=== PATIENT | male | born 1950 | race African-American/Black ===

== ENCOUNTER 2021-06-29 14:29 | Inpatient (IN) | payer MEDICARE, OTHER ==
[~2021-06-29] VITALS: Ht 165.1 cm; Wt 84.9 kg
[2021-06-29] MEDS ORDERED: methylPREDNISolone SOD SUCC 125 MG/2 ML VL IV ONE (14:45)
[2021-06-29] MEDS ORDERED: EPINEPHrine HCL 1 MG/1 ML AMP SC ONE (14:45)
[2021-06-29 15:09] LABS: Basophils # (auto) 0.1 10 ^3/uL (0-0.2); Basophils % (auto) 1.7 % (0.0-2.0); Eosinophils # (auto) 0 10 ^3/uL (0-0.8); Hematocrit 46.4 % (41.0-53.0); Hemoglobin 15.5 g/dL (13.5-17.5); Lymphocytes # (auto) 0.4 10 ^3/uL (0.4-5.4); Lymphocytes % (auto) 5.1 % (10.0-50.0); Mean Corpuscular Hgb Conc. 33.5 g/dL (32.0-36.0); Mean Corpuscular Volume 83.4 fL (80.0-100.0); Monocytes # (auto) 0 10 ^3/uL (0-1.3); Monocytes % (auto) 0.5 % (0.0-12.0); Neutrophils # (auto) 7.5 10 ^3/uL (1.6-8.6); Neutrophils % (auto) 92.7 % (37.0-80.0); Red Blood Cells 5.56 10^6/uL (4.5-5.90); Red Cell Distribution Width 14.8 % (11.8-14.3); White Blood Cell 8.1 10^3/uL (4.4-10.8)
[2021-06-29 15:29] LABS: BUN/Creatinine Ratio 15.7; Calcium 10.9 mg/dL (8.5-10.1); Potassium 3.8 mmol/L (3.5-5.1)
[2021-06-29 15:33] LABS: Bilirubin, Total 0.4 mg/dL (0.2-1.0); Total Protein 8.8 g/dL (6.4-8.2)
[2021-06-29] MEDS ORDERED: NITROGLYCERIN 0.4 MG SL TAB SL PRN (17:15)
[2021-06-29] MEDS ORDERED: LACTATED RINGER'S 1,000 ML IV ONE (17:15)
[2021-06-29] MEDS ORDERED: diphenhdrAMINE HCL 50 MG/1 ML VL IV PRN ×2 (17:15→19:45)
[2021-06-29] MEDS ORDERED: MORPHINE SULFATE INJECTION 2 MG/ML SYRG IV PRN ×2 (17:15→19:45)
[2021-06-29] MEDS ORDERED: diphenhdrAMINE HCL 50 MG/1 ML VL IV ONE (17:15)
[2021-06-29] MEDS ORDERED: FAMOTIDINE (10MG/ML) 2ML VL IV ONE (19:45)
[2021-06-29] MEDS ORDERED: ONDANSETRON HCL 4 MG/2 ML VIAL IV PRN (19:45)
[2021-06-29] MEDS ORDERED: IPRATROPIUM BROM 0.5 MG/2.5ML INH SOL NEB ONE (19:45)
[2021-06-29] MEDS ORDERED: HYDROcodone-ACET 5/325MG TAB PO PRN (19:45)
[2021-06-29] MEDS ORDERED: NIFEdipine ER 30 MG TAB PO ONE (19:45)
[2021-06-29] MEDS ORDERED: LORazepam 0.5 MG TAB PO PRN (19:45)
[2021-06-29] MEDS ORDERED: DOCUSATE SOD 100 MG CAP PO PRN (19:45)
[2021-06-29] MEDS ORDERED: LACTULOSE 20Gm/30ML SOLN PO PRN (19:45)
[2021-06-29] MEDS ORDERED: hydrALAZINE HCL 20 MG/ML VL IV PRN (19:45)
[2021-06-29] MEDS ORDERED: ZOLEDRONIC ACID 4 MG in SODIUM CHL 0.9% 100 ML IV ONE (19:45)
[2021-06-29] MEDS ORDERED: HYDROcodone-ACET 5/325MG TAB PO ONE (19:45)
[2021-06-29] MEDS ORDERED: levoFLOXacin 750MG 150 ML IV ONE (19:45)
[2021-06-29] MEDS ORDERED: IOHEXOL 300 MG/ML 100ML BOTTLE IJ ONE (20:44)
[2021-06-29] MEDS: SODIUM CHLORIDE 0.9% 1,000 ML IV SCH (21:17)
[2021-06-29] MEDS: methylPREDNISolone SOD SUCC 40 MG/ML VL IV SCH (21:41)
[2021-06-29] MEDS ORDERED: ATORVASTATIN 20 MG TAB PO SCH (22:00)
[2021-06-29] MEDS ORDERED: ENOXAPARIN SOD 40 MG/0.4 ML SYRINGE SC SCH (22:00)
[2021-06-29] MEDS ORDERED: IPRATROPIUM BROM 0.5 MG/2.5ML INH SOL NEB SCH (22:00)
[2021-06-29 22:22] LABS: INR 1.1 (0.9-1.15)
[2021-06-29 22:30] LABS: Magnesium 1.8 mg/dL (1.6-2.6); Phosphorus 3.1 mg/dL (2.5-4.90)
[2021-06-29 23:41] VITALS: BP 126/66
[2021-06-30] MEDS ORDERED: HYDR25TA4 PO (00:18)
[2021-06-30] MEDS ORDERED: AMLO5CAP PO (00:18)
[2021-06-30 04:48] VITALS: BP 137/62
[2021-06-30 05:34] LABS: Basophils # (auto) 0 10 ^3/uL (0-0.2); Basophils % (auto) 0.2 % (0.0-2.0); Eosinophils # (auto) 0 10 ^3/uL (0-0.8); Hemoglobin 14.2 g/dL (13.5-17.5); Lymphocytes # (auto) 1.3 10 ^3/uL (0.4-5.4); Lymphocytes % (auto) 15.2 % (10.0-50.0); Mean Corpuscular Hemoglobin 28.1 pg (28.0-32.0); Mean Corpuscular Hgb Conc. 33.8 g/dL (32.0-36.0); Mean Corpuscular Volume 83.2 fL (80.0-100.0); Monocytes # (auto) 0.1 10 ^3/uL (0-1.3); Monocytes % (auto) 1.2 % (0.0-12.0); Neutrophils # (auto) 7.2 10 ^3/uL (1.6-8.6); Neutrophils % (auto) 83.4 % (37.0-80.0); Red Blood Cells 5.05 10^6/uL (4.5-5.90); Red Cell Distribution Width 14.7 % (11.8-14.3); White Blood Cell 8.7 10^3/uL (4.4-10.8)
[2021-06-30 05:55] LABS: INR 1.18 (0.9-1.15); Partial Thromboplastin Time 31.6 sec (23.6-33.0)
[2021-06-30 05:57] LABS: Potassium 3.7 mmol/L (3.5-5.1)
[2021-06-30 06:08] LABS: Albumin 3.4 g/dL (3.4-5.0); BUN/Creatinine Ratio 15.7; Bilirubin, Total 0.4 mg/dL (0.2-1.0); CRP High Sensitivity 3.16 mg/dL (< 0.3); Calcium 9.9 mg/dL (8.5-10.1); Magnesium 1.8 mg/dL (1.6-2.6); Phosphorus 3.2 mg/dL (2.5-4.90); Total Protein 8.4 g/dL (6.4-8.2)
[2021-06-30] MEDS: methylPREDNISolone SOD SUCC 40 MG/ML VL IV SCH (06:20)
[2021-06-30 08:51] VITALS: BP 123/55
[2021-06-30] MEDS: SODIUM CHLORIDE 0.9% 1,000 ML IV SCH (09:05)
[2021-06-30 09:11] LABS: Urine Bacteria NONE SEEN /hpf (None Seen); Urine Blood Negative /uL (Negative); Urine Specific Gravity 1.025 (1.001-1.035); Urine WBC <1 /hpf (0 - 3)
[2021-06-30 09:18] LABS: Amphetamine Screen, Urine NEGATIVE (NEGATIVE); Barbiturate Scree,Urine NEGATIVE (NEGATIVE); Benzodiazephine Screen, Urine NEGATIVE (NEGATIVE); Cannabinoid Screen, Urine NEGATIVE (NEGATIVE); Cocaine Screen, Urine NEGATIVE (NEGATIVE); Opiate Scree,Urine NEGATIVE (NEGATIVE); Phencyclidine Screen, Urine NEGATIVE (NEGATIVE); Protein, Urine 9.3 mg/dL (0.0-11.9)
[2021-06-30] MEDS ORDERED: ASPirin 81 mg TAB PO SCH (10:00)
[2021-06-30] MEDS ORDERED: METH4PAK PO (11:44)
[2021-06-30 13:02] VITALS: BP 121/80
[2021-06-30] MEDS ORDERED: levoFLOXacin 750MG 150 ML IV SCH (22:00)
[2021-06-30] MEDS ORDERED: NIFEdipine ER 30 MG TAB PO SCH (22:00)
== END 2021-06-30 15:50 | disposition home or self-care (01) | DRG 916 ==
LOC: ER 14:29 → TELE 17:15 → TELE-EAST 23:45
PROVIDERS: ADMIT Hospitalist; ATTEND Internal Medicine
DX: T78.3XXA Angioneurotic edema, initial encounter (principal); I16.9 Hypertensive crisis, unspecified; N17.9 Acute kidney failure, unspecified; E86.0 Dehydration; I10 Essential (primary) hypertension; Z20.822 Contact with and (suspected) exposure to COVID-19; E83.52 Hypercalcemia; Z79.899 Other long term (current) drug therapy
CPT/HCPCS: 36415; 70491; 71045; 80053; 80061; 80307; 81001; 82550; 82728; 83036; 83615; 83690; 83735; 83880; 83970; 84100; 84156; 84443; 84484; 85025; 85379; 85610; 85652; 85730; 86141; 86160; 87040; 87086; 93005; 96361; 96372; 96374; G0378; J0171; J1956; J3489; J3490